=== PATIENT | male | born 1950 | race Two or more races ===

== ENCOUNTER 2022-03-24 20:04 | Emergency (ER) | payer OTHER ==
[~2022-03-24] VITALS: Ht 170.2 cm; Wt 72.6 kg
[2022-03-24] MEDS: CHOLECALCIFEROL 1,000 UNIT TABLET PO SCH ×2 (20:15→22:26)
[2022-03-24] MEDS ORDERED: IV NS 1000 ML 1,000 ML IV ONE ×2 (20:15→21:15)
[2022-03-24] MEDS ORDERED: CHOLECALCIFEROL 1,000 UNIT TABLET ONE (20:57)
[2022-03-24 21:03] LABS: CARBON DIOXIDE 23 mmol/L (21-32); CHLORIDE 97 mmol/L (98-107); CREATININE 1.7 mg/dL (0.6-1.3); GLUCOSE 293 mg/dL (74-106); HEMATOCRIT 34.9 % (36.7-47.1); MEAN CORPUSCULAR HEMOGLOBIN 28.2 uug (23.8-33.4); MEAN CORPUSCULAR VOLUME 83.5 fL (73.0-96.2); PLATELET COUNT (AUTO) 239 K/uL (152-348); POTASSIUM 4.1 mmol/L (3.5-5.1); UREA NITROGEN, BLOOD 19 mg/dL (7-18)
--- NOTE | 2022-03-24 21:16 | NUR ---
IV on L AC 20g, changed diaper, small BM noted, pt. is agitated unable to give PO meds Vit. D.
[2022-03-24 21:20] LABS: ALANINE AMINOTRANSFERASE 34 U/L (16-63); ALKALINE PHOSPHATASE 65 U/L (50-136); ASPARTATE AMINOTRANSFERASE 42 U/L (15-37); BILIRUBIN,TOTAL 0.5 mg/dL (0.2-1.0); FERRITIN 85 ng/mL (26-388); LACTATE DEHYDROGENASE 201 U/L (85-227)
--- NOTE | 2022-03-24 21:26 | NUR ---
Lab called confirmed pt. covid positive
--- NOTE | 2022-03-24 21:43 | NUR ---
Called [facility] for [facility], talked to [place], son and dtr in law are here talking to Dr. Damon.
[2022-03-24 21:57] LABS: CREATINE KINASE, TOTAL 1796 U/L (39-308)
--- NOTE | 2022-03-24 22:20 | NUR ---
urine collected via cath sent to lab
--- NOTE | 2022-03-24 22:27 | NUR ---
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 family still at bedside
[2022-03-24 22:46] LABS: *BILIRUBIN,URIN NEGATIVE (NEGATIVE); *BLOOD, URINE 1+ (NEGATIVE); *CLARITY,URINE CLEAR (CLEAR); *COLOR,URINE YELLOW (YELLOW); *KETONES,URINE 2+ (NEGATIVE); *UROBILINOGEN,URINE 0.2 E.U./dl (NORMAL); LEUKOCYTE ESTERASE ,URINE NEGATIVE (NEGATIVE); NITRITE, URINE NEGATIVE (NEGATIVE); UGLUCOSE TRACE (NEGATIVE)
[2022-03-24 22:52] LABS: BACTERIA,URINE FEW /HPF (NONE SEEN); SQUAMOUS EPITHELIAL CELL,UR NONE SEEN /HPF (NONE SEEN); WBC,URINE 0-3 /HPF (0-3)
--- NOTE | 2022-03-24 22:56 | NUR ---
came back from [place].
--- NOTE | 2022-03-25 00:47 | NUR ---
called [facility] for status. pt, will be transferred under Dr. Hopper. ETA not confirmed yet. Called Jorge (dtr in law) to inform . Pt in bed asleep at this time. VSS
--- NOTE | 2022-03-25 01:29 | NUR ---
Gail from [facility] called informing pt. will be picked up by [facility] at 0315am, under Dr. Hopper # [id number].
--- NOTE | 2022-03-25 01:32 | NUR ---
Called [facility] to inform pt. will be transferred to [facility] RM [id number]
--- NOTE | 2022-03-25 02:11 | NUR ---
Picked up by [facility], sent to [facility]. fam notified.
--- NOTE | 2022-03-25 02:12 | NUR ---
TIA Holm from [facility]
[2022-03-25 02:16] VITALS: BP 142/74
== END 2022-03-25 02:20 | disposition short-term general hospital (02) ==
LOC: ER 20:07
DX: U07.1 COVID-19 (principal); R41.82 Altered mental status, unspecified; E87.20 Acidosis, unspecified; E11.65 Type 2 diabetes mellitus with hyperglycemia; R00.0 Tachycardia, unspecified; R79.1 Abnormal coagulation profile
CPT/HCPCS: 99291; 96360; 70450; 87426; 80053; 81001; 82248; 82550; 82728; 85385; 83880; 83615; 85025; 84145; 85379; 86140; 87400; 84484; 36415; 93005; 71045; 83605 ×2; U0003; C9803; J7040; C1758